=== PATIENT | female | born 1985 | race Caucasian/White ===

== ENCOUNTER 2017-05-25 08:06 | Inpatient (IN) | payer MEDICAID ==
[~2017-05-25] VITALS: Ht 157.5 cm; Wt 70.3 kg
[~2017-05-25 08:06] MED LIST: PREN-508 PO
[2017-05-25] MEDS ORDERED: FERR325E14 PO (08:23)
[2017-05-25] MEDS ORDERED: LACTATED RINGERS 1,000 ML IV SCH ×2 (08:23→09:45)
[2017-05-25] MEDS ORDERED: PROMETHAZINE 25 MG/ML VIAL IVP PRN ×2 (08:25→09:50)
[2017-05-25] MEDS ORDERED: METHYLERGONOVINE 0.2 MG/ML AMP IM PRN ×2 (08:25→09:50)
[2017-05-25] MEDS ORDERED: AMPICILLIN 2,000 MG in NACL 0.9% MINI-BAG PLUS 100 ML IV SCH (08:25)
[2017-05-25] MEDS ORDERED: CARBOPROST 250 MCG/ML AMP IM PRN ×2 (08:25→09:45)
[2017-05-25] MEDS ORDERED: NALBUPHINE HYDROCHLORIDE 10 MG/ML VIAL IVP PRN ×2 (08:25→09:50)
[2017-05-25] MEDS ORDERED: OXYTOCIN 10 UNITS/ML VIAL IM SCH ×2 (08:25→09:50)
[2017-05-25] MEDS ORDERED: LIDOCAINE 1% 500 MG/50 ML VIAL INJ SCH (08:25)
[2017-05-25 08:51] VITALS: BP 115/66
[2017-05-25 09:22] LABS: BASOPHILS # (AUTO) 0.2 K/uL (0.00-0.22); BASOPHILS % (AUTO) 1.6 % (0.0-2.0); EOSINOPHILS # (AUTO) 0.2 K/uL (0-0.4); EOSINOPHILS % (AUTO) 1.5 % (0.0-4.0); HEMATOCRIT 38.2 % (36-48); HEMOGLOBIN 12.6 g/dL (12.0-16.0); LYMPHOCYTES # (AUTO) 1.4 K/uL (2.5-16.5); LYMPHOCYTES % (AUTO) 13.5 % (20.5-51.1); MEAN CORPUSCULAR HEMOGLOBIN 30 pg (27-31); MEAN CORPUSCULAR HGB CONC 33 g/dL (33-37); MEAN CORPUSCULAR VOLUME 90 fL (80-94); MONOCYTES # (AUTO) 0.3 K/uL (0.8-1.0); MONOCYTES % (AUTO) 3.1 % (1.7-9.3); NEUTROPHILS # (AUTO) 8.5 K/uL (1.8-7.7); NEUTROPHILS % (AUTO) 80.3 % (42.2-75.2); PLATELET COUNT (AUTO) 227 K/uL (140-450); RED BLOOD CELL COUNT(AUTO) 4.26 MIL/uL (4.20-5.40); RED CELL DISTRIBUTION WIDTH 15.4 % (11.6-13.7); WHITE BLOOD COUNT (AUTO) 10.6 K/uL (4.8-10.8)
[2017-05-25 09:25] LABS: APPEARANCE,URINE SL CLOUDY (CLEAR); BILIRUBIN,URINE NEGATIVE (NEGATIVE); BLOOD, URINE TRACE-I (NEGATIVE); COLOR,URINE YELLOW (YELLOW); LEUKOCYTE ESTERASE ,URINE NEGATIVE (NEGATIVE); NITRITE, URINE NEGATIVE (NEGATIVE); UGLUCOSE NEGATIVE (NEGATIVE)
[2017-05-25 09:43] LABS: WBC,URINE 0-4 /HPF (0-5)
[2017-05-25] MEDS ORDERED: OXYTOCIN 20 UNITS/LR PREMIX 1,000 ML IV ONE (09:43)
[2017-05-25] MEDS ORDERED: OXYTOCIN 10 UNITS/ML VIAL ONE (09:43)
[2017-05-25] MEDS ORDERED: LIDOCAINE 1% 50 ML ONE (09:43)
[2017-05-25 09:48] LABS: ALBUMIN 2.6 g/dL (3.4-5.0); ANION GAP 12.8 (8-16); CARBON DIOXIDE 25.5 mmol/L (21-32); CREATININE 0.6 mg/dL (0.6-1.3); POTASSIUM 4.3 mmol/L (3.5-5.1); TOTAL BILIRUBIN 0.3 mg/dL (0.0-1.0)
[2017-05-25] MEDS ORDERED: OXYTOCIN 20 UNITS/LR PREMIX 1,000 ML IV SCH ×3 (09:50→11:32)
[2017-05-25] MEDS ORDERED: MEASLES, MUMPS, AND RUBELLA 1 VIAL SQVAC PRN (11:35)
[2017-05-25] MEDS ORDERED: ACETAMINOPHEN 325 MG TAB PO PRN (11:35)
[2017-05-25] MEDS ORDERED: oxyCODONE/APAP 5/325 MG 1 TAB TAB PO PRN (11:35)
[2017-05-25] MEDS ORDERED: BISACODYL 5 MG TABEC PO PRN (11:35)
--- NOTE | 2017-05-25 11:46 | NUR ---
PATIENT HAS BEEN SCREENED AND CATEGORIZED LOW NUTRITION RISK. PATIENT WILL BE SEEN WITHIN 7 DAYS OF ADMISSION. 06/01/17 URMILA GREENE MBA, RD
[2017-05-25] MEDS ORDERED: AMPICILLIN 1,000 MG in NACL 0.9% MINI-BAG PLUS 50 ML IV SCH (12:00)
[2017-05-25 13:20] LABS: RAPID PLASMA REAGIN NON-REACTIVE (Non Reactiv)
[2017-05-26 08:29] LABS: BASOPHILS # (AUTO) 0.1 K/uL (0.00-0.22); BASOPHILS % (AUTO) 1.1 % (0.0-2.0); EOSINOPHILS # (AUTO) 0.2 K/uL (0-0.4); EOSINOPHILS % (AUTO) 1.8 % (0.0-4.0); HEMATOCRIT 39.2 % (36-48); LYMPHOCYTES % (AUTO) 14.9 % (20.5-51.1); MEAN CORPUSCULAR HEMOGLOBIN 30 pg (27-31); MEAN CORPUSCULAR HGB CONC 33 g/dL (33-37); MEAN CORPUSCULAR VOLUME 90 fL (80-94); MONOCYTES # (AUTO) 0.5 K/uL (0.8-1.0); NEUTROPHILS # (AUTO) 10.4 K/uL (1.8-7.7); NEUTROPHILS % (AUTO) 78.2 % (42.2-75.2); PLATELET COUNT (AUTO) 223 K/uL (140-450); RED BLOOD CELL COUNT(AUTO) 4.33 MIL/uL (4.20-5.40); RED CELL DISTRIBUTION WIDTH 15.7 % (11.6-13.7); WHITE BLOOD COUNT (AUTO) 13.2 K/uL (4.8-10.8)
[2017-05-27] MEDS ORDERED: ACET-9800 PO (13:51)
== END 2017-05-27 16:15 | disposition home or self-care (01) | DRG 560 ==
LOC: MLD 08:06 → MFCC 13:45
PROVIDERS: ADMIT Obstetrics & Gynecology; ATTEND Obstetrics & Gynecology
PROC: 10E0XZZ Delivery of Products of Conception, External Approach (ICD-10-PCS; principal; 2017-05-25)
DX: O80 Encounter for full-term uncomplicated delivery (principal); Z80.9 Family history of malignant neoplasm, unspecified; Z37.0 Single live birth; Z3A.38 38 weeks gestation of pregnancy; Z83.3 Family history of diabetes mellitus; Z82.49 Family history of ischemic heart disease and other diseases of the circulatory system; Z28.21 Immunization not carried out because of patient refusal
CPT/HCPCS: 36415; 59409; 80053; 81001; 85025; 86592; 86886; 86900; 86901; J2001; J2590